=== PATIENT | male | born 1995 | race Caucasian/White ===

== ENCOUNTER 2017-02-21 17:08 | Emergency (ER) | payer SELFPAY ==
[2017-02-21 17:30] VITALS: BP 136/84
--- NOTE | 2017-02-21 18:16 | EDM.PDOC ---
ED HPI GENERAL MEDICAL PROBLEM - General Chief Complaint: General Stated Complaint: SWOLLEN LYMPH NODE Time Seen by Provider: 02/21/17 17:43 Source of Information: Reports: Patient, Family History Limitations: Reports: No Limitations - History of Present Illness INITIAL COMMENTS - FREE TEXT/NARRATIVE: Patient presents for evaluation of sore throat cervical lymph nodes that are swollen and he noticed some yellow spots on his anterior abdominal wall. The patient feels that he is more tired than usual. He has generalized body aches. Has a cough which is nonproductive. And has some mild symptoms of fever and chills no temperature elevation documented Onset: Gradual Onset Date: 02/20/17 Duration: Day(s):, Getting Worse Location: Reports: Neck Quality: Reports: Ache Severity: Mild Improves with: Reports: None Worsens with: Reports: None Associated Symptoms: Reports: Cough, Fever/Chills Treatments LAUNDRY AID: Reports: Acetaminophen Generalized Pain Score (Numeric/FACES): 1 - Related Data Allergies Allergy/AdvReac Type Severity Reaction Status Date / Time No Known Allergies Allergy Verified 02/21/17 17:57 Home Meds: Home Meds NK [No Known Home Meds] 10/09/15 [History] Past Medical History - Past Health History Medical/Surgical History: Denies Medical/Surgical History Psychiatric History: Reports: Anxiety - Past Surgical History Male Surgical History: Reports: Other (See Below) Social & Family History - Family History Family Medical History: Unobtainable - Tobacco Use Smoking Status *Q: Never Smoker Second Hand Smoke Exposure: No - Alcohol Use Days Per Week of Alcohol Use: 4 Number of Drinks Per Day: 6 Total Drinks Per Week: 24 - Recreational Drug Use Recreational Drug Use: Yes Recreational Drug Type: Reports: Marijuana/Hashish Recreational Drug Use Frequency: Daily ED ROS GENERAL - Review of Systems Review Of Systems: See Below Constitutional: Reports: Fever, Chills, Malaise, Fatigue HEENT: Reports: Throat Pain, Throat Swelling Respiratory: Reports: Cough Cardiovascular: Reports: No Symptoms Endocrine: Reports: Fatigue GI/Abdominal: Reports: No Symptoms : Reports: No Symptoms Musculoskeletal: Reports: No Symptoms Skin: Reports: No Symptoms Neurological: Reports: No Symptoms Psychiatric: Reports: No Symptoms ED EXAM, GENERAL - Physical Exam Exam: See Below Exam Limited By: No Limitations General Appearance: Alert, WD/WN, Mild Distress Eye Exam: Bilateral Eye: Normal Inspection Ears: Normal External Exam, Hearing Grossly Normal Nose: Normal Inspection Throat/Mouth: No Airway Compromise, Inflammation Head: Atraumatic, Normocephalic Respiratory/Chest: No Respiratory Distress Cardiovascular: Normal Peripheral Pulses GI/Abdominal: Normal Bowel Sounds Back Exam: Normal Inspection Extremities: Normal Inspection Neurological: Alert, Oriented Psychiatric: Normal Affect, Normal Mood Skin Exam: Warm, Dry, Intact, Other (2 anterior wall small areas of yellow discoloration which appears to be resolving ecchymosis) Course - Vital Signs Last Recorded V/S: Last Vital Signs Temp 99.0 F 02/21/17 17:56 Pulse 86 02/21/17 17:56 Resp 16 02/21/17 17:56 BP 136/84 02/21/17 17:56 Pulse Ox 97 02/21/17 17:56 Departure - Departure Time of Disposition: 18:15 Disposition: Home, Self-Care 01 Condition: Good Clinical Impression: Pharyngitis Qualifiers: Pharyngitis/tonsillitis etiology: unspecified etiology Qualified Code(s): J02.9 - Acute pharyngitis, unspecified - Discharge Information Referrals: Rafiq Yee Sr, MD [Primary Care Provider] - Forms: ED Department Discharge Additional Instructions: Patient does have a red pharynx with cervical lymphadenopathy. There is no exudates present on the residual tonsillar tissue. The patient be treated with amoxicillin 500 mg 3 times a day for 10 days. Patient needs to be reevaluated if any complications are encountered or the failure to respond to treatment plan. - Problem List & Annotations (1) Pharyngitis SNOMED Code(s): 775924015 Code(s): J02.9 - ACUTE PHARYNGITIS, UNSPECIFIED Status: Acute Priority: Medium Current Visit: Yes Qualifiers: Pharyngitis/tonsillitis etiology: unspecified etiology Qualified Code(s): J02.9 - Acute pharyngitis, unspecified - Problem List Review Problem List Initiated/Reviewed/Updated: Yes
== END 2017-02-21 18:25 | disposition home or self-care (01) ==
LOC: JP.ED 17:08
DX: J02.9 Acute pharyngitis, unspecified (principal)
CPT/HCPCS: 99283

== ENCOUNTER 2018-05-04 16:52 | Emergency (ER) | payer SELFPAY ==
--- NOTE | 2018-05-04 18:19 | EDM.PDOCBH ---
ED HPI GENERAL MEDICAL PROBLEM - General Chief Complaint: Behavioral/Psych Stated Complaint: MED [facility] Time Seen by Provider: 05/04/18 18:07 Source of Information: Reports: Patient, RN Notes Reviewed History Limitations: Reports: No Limitations - History of Present Illness INITIAL COMMENTS - FREE TEXT/NARRATIVE: 22-year-old gentleman brought in by law enforcement for psychiatric evaluation. Story is that he had posted a video on [employer] showing him ingesting multiple tablets law enforcement was called for social intervention evaluation brought to the emergency department for psychiatric evaluation. He denies any suicidal ideation at this time states he has been taking ibuprofen and Tylenol for dental pain he believes he ingested 9 200 mg naproxen tablets in combination with antibiotics but he does not know the type of antibiotics that he just. At this time he denies any pain no complaints whatsoever. Time of ingestion was approximately 2 hours prior - Related Data Allergies Allergy/AdvReac Type Severity Reaction Status Date / Time No Known Allergies Allergy Verified 02/21/17 17:57 Home Meds: Home Meds NK [No Known Home Meds] 10/09/15 [History] Past Medical History Psychiatric History: Reports: Anxiety - Past Surgical History Male Surgical History: Reports: Other (See Below) Social & Family History - Family History Family Medical History: Unobtainable - Tobacco Use Smoking Status *Q: Never Smoker - Caffeine Use Caffeine Use: Reports: Energy Drinks - Recreational Drug Use Recreational Drug Use: Yes Drug Use in Last 12 Months: Yes Recreational Drug Type: Reports: Marijuana/Hashish Recreational Drug Use Frequency: Daily ED ROS GENERAL - Review of Systems Review Of Systems: See Below Constitutional: Reports: No Symptoms HEENT: Reports: Dental Pain Respiratory: Reports: No Symptoms Cardiovascular: Reports: No Symptoms GI/Abdominal: Reports: No Symptoms : Reports: No Symptoms Musculoskeletal: Reports: No Symptoms Skin: Reports: No Symptoms ED EXAM, BEHAVIORAL HEALTH - Physical Exam Exam: See Below Text/Narrative:: General: Male, not in any distress, alert and oriented x3 HEENT: head is atraumatic normocephalic, eyes pupils equal round reactive to light, sclera clear no conjunctivitis appreciated. Ears tympanic membranes clear and callaway landmarks and light reflex are present bilaterally canals are clear. Nose no septal deviation, nares are clear, no blood present. Mouth mucosa is moist and pink no erythema or exudate noted in soft palate, tongue is midline uvula is midline, dentition is poor. Neck: Supple no thyromegaly no tracheal deviation. Nodes: Cervical nodes subclavicular nodes nontender no palpable lymphadenopathy noted. Lungs: clear to auscultation bilaterally with symmetrical respirations, no adventitious noise appreciated. CV: Tachycardic rate and rhythm S1 and S2 appreciated no murmurs rubs or gallops noted. Abdomen: Soft, nontender, no palpable masses or organomegaly appreciated, no distention no guarding bowel sounds are present, . Neuro: Cranial nerves II through XII grossly intact Skin: Warm and dry, intact Extremities: No lower extremity edema appreciated, pedal pulse is +2. Orientated to person place and time, appropriately dressed, well groomed, memory to recent and remote events intact, good attention and concentration, speech is of adequate rate tone and volume, poor fund of knowledge, language is appropriate, Mood and affect are euthymic, no pressured thoughts, denies suicidal ideation, denies homicidal ideation, no hallucinations visual or auditory, poor judgment, poor insight COURSE, BEHAVIORAL HEALTH COMP - Course Vital Signs: Last Vital Signs Temp 97.2 F 05/04/18 20:31 Pulse 63 05/04/18 20:31 Resp 16 05/04/18 20:31 BP 118/60 05/04/18 20:31 Pulse Ox 99 05/04/18 20:31 Orders, Labs, Meds: Active Orders 24 hr Category Date Time Status EKG Documentation Completion [RC] ASDIRECTED Care 05/04/18 18:15 Active Suicide Precautions [OM.PC] Routine Oth 05/05/18 00:22 Ordered EKG 12 Lead [EK] Urgent Ther 05/04/18 18:13 Ordered Laboratory Tests 05/04/18 05/04/18 05/04/18 Range/Units 18:13 18:13 18:13 WBC 10.8 (4.5-11.0) K/uL RBC 4.37 (4.30-5.90) M/uL Hgb 13.9 (12.0-15.0) g/dL Hct 38.2 L (40.0-54.0) % MCV 87 (80-98) fL MCH 32 H (27-31) pg MCHC 36 (32-36) % Plt Count 258 (150-400) K/uL Neut % (Auto) 83 H (36-66) % Lymph % (Auto) 8 L (24-44) % [place] % (Auto) 9 H (2-6) % Eos % (Auto) 1 L (2-4) % Baso % (Auto) 0 (0-1) % Sodium (140-148) mmol/L Potassium (3.6-5.2) mmol/L Chloride (100-108) mmol/L Carbon Dioxide (21-32) mmol/L Anion Gap (5.0-14.0) mmol/L BUN (7-18) mg/dL Creatinine (0.8-1.3) mg/dL Est Cr Clr Drug Dosing mL/min Estimated GFR (MDRD) (>60) Glucose (74-106) mg/dL Calcium (8.5-10.1) mg/dL Total Bilirubin (0.2-1.0) mg/dL AST (15-37) U/L ALT (12-78) U/L Alkaline Phosphatase (46-116) U/L Total Protein (6.4-8.2) g/dL Albumin (3.4-5.0) g/dL Globulin (2.3-3.5) g/dL Albumin/Globulin Ratio (1.2-2.2) Urine Color Yellow Urine Appearance Clear Urine pH 8.0 (4.5-8.0) Ur Specific [place] 1.010 (1.008-1.030) Urine Protein Negative (NEGATIVE) mg/dL Urine Glucose (UA) Normal (NEGATIVE) mg/dL Urine Ketones Negative (NEGATIVE) mg/dL Urine Occult Blood Negative (NEGATIVE) Urine Nitrite Negative (NEGAITVE) Urine Bilirubin Negative (NEGATIVE) Urine Urobilinogen Normal (NORMAL) mg/dL Ur Leukocyte Esterase Negative (NEGATIVE) Urine RBC Not seen (0-5) Urine WBC Not seen (0-5) Ur Epithelial Cells Not seen Amorphous Sediment Not seen Urine Bacteria Rare Urine Mucus Not seen Salicylates (2.0-20.0) mg/dL Urine Opiates Screen Negative (NEGATIVE) Ur Oxycodone Screen Presumptive positive H (NEGATIVE) Urine Methadone Screen Negative (NEGATIVE) Ur Propoxyphene Screen Negative (NEGATIVE) Acetaminophen (10.0-30.0) ug/mL Ur Barbiturates Screen Negative (NEGATIVE) Ur Tricyclics Screen Negative (NEGATIVE) Ur Phencyclidine Scrn Negative (NEGATIVE) Ur Amphetamine Screen Presumptive positive H (NEGATIVE) U Methamphetamines Scrn Negative (NEGATIVE) Urine MDMA Screen Negative (NEGATIVE) U Benzodiazepines Scrn Negative (NEGATIVE) U Cocaine Metab Screen Negative (NEGATIVE) U Marijuana (THC) Screen Presumptive positive H (NEGATIVE) Ethyl Alcohol mg/dL 05/04/18 05/04/18 05/04/18 Range/Units 18:13 18:13 18:13 WBC (4.5-11.0) K/uL RBC (4.30-5.90) M/uL Hgb (12.0-15.0) g/dL Hct (40.0-54.0) % MCV (80-98) fL MCH (27-31) pg MCHC (32-36) % Plt Count (150-400) K/uL Neut % (Auto) (36-66) % Lymph % (Auto) (24-44) % [place] % (Auto) (2-6) % Eos % (Auto) (2-4) % Baso % (Auto) (0-1) % Sodium 140 (140-148) mmol/L Potassium 4.0 (3.6-5.2) mmol/L Chloride 102 (100-108) mmol/L Carbon Dioxide 29 (21-32) mmol/L Anion Gap 9.4 (5.0-14.0) mmol/L BUN 12 (7-18) mg/dL Creatinine 1.0 (0.8-1.3) mg/dL Est Cr Clr Drug Dosing 112.04 mL/min Estimated GFR (MDRD) > 60 (>60) Glucose 102 (74-106) mg/dL Calcium 8.7 (8.5-10.1) mg/dL Total Bilirubin 0.7 D (0.2-1.0) mg/dL AST 22 (15-37) U/L ALT 29 (12-78) U/L Alkaline Phosphatase 74 (46-116) U/L Total Protein 7.6 (6.4-8.2) g/dL Albumin 4.2 (3.4-5.0) g/dL Globulin 3.4 (2.3-3.5) g/dL Albumin/Globulin Ratio 1.2 (1.2-2.2) Urine Color Urine Appearance Urine pH (4.5-8.0) Ur Specific [place] (1.008-1.030) Urine Protein (NEGATIVE) mg/dL Urine Glucose (UA) (NEGATIVE) mg/dL Urine Ketones (NEGATIVE) mg/dL Urine Occult Blood (NEGATIVE) Urine Nitrite (NEGAITVE) Urine Bilirubin (NEGATIVE) Urine Urobilinogen (NORMAL) mg/dL Ur Leukocyte Esterase (NEGATIVE) Urine RBC (0-5) Urine WBC (0-5) Ur Epithelial Cells Amorphous Sediment Urine Bacteria Urine Mucus Salicylates 1.7 L (2.0-20.0) mg/dL Urine Opiates Screen (NEGATIVE) Ur Oxycodone Screen (NEGATIVE) Urine Methadone Screen (NEGATIVE) Ur Propoxyphene Screen (NEGATIVE) Acetaminophen < 2.0 L (10.0-30.0) ug/mL Ur Barbiturates Screen (NEGATIVE) Ur Tricyclics Screen (NEGATIVE) Ur Phencyclidine Scrn (NEGATIVE) Ur Amphetamine Screen (NEGATIVE) U Methamphetamines Scrn (NEGATIVE) Urine MDMA Screen (NEGATIVE) U Benzodiazepines Scrn (NEGATIVE) U Cocaine Metab Screen (NEGATIVE) U Marijuana (THC) Screen (NEGATIVE) Ethyl Alcohol < 3 mg/dL Re-Assessment/Re-Exam: After discussion with mental health crisis team they're recommending placement for suicidal ideation and attempt, feel he is very impulsive and is likely to harm himself, thus far has been cooperative but may need to be placed on a hold as he has the potential to a elope Departure - Departure Time of Disposition: 00:38 Disposition: DC/Tfer to Psych Hosp/Unit 65 Condition: Fair Clinical Impression: Suicidal ideation - Discharge Information Referrals: PCP,None [Primary Care Provider] - Forms: ED Department Discharge - My Orders Last 24 Hours: My Active Orders 05/04/18 18:13 EKG 12 Lead [EK] Urgent 05/04/18 18:15 EKG Documentation Completion [RC] ASDIRECTED 05/05/18 00:22 Suicide Precautions [OM.PC] Routine - Assessment/Plan Last 24 Hours: My Active Orders 05/04/18 18:13 EKG 12 Lead [EK] Urgent 05/04/18 18:15 EKG Documentation Completion [RC] ASDIRECTED 05/05/18 00:22 Suicide Precautions [OM.PC] Routine Plan: Assessment Acuity = acute Site and laterality = suicidal ideation Etiology = unknown etiology Manifestations = none Location of injury = Home Lab values = CBC, CMP, urinalysis unremarkable urine drug screen positive for opiates, amphetamine, cannabis EKG demonstrates normal sinus rhythm Plan acceptance was granted by [facility] , he was placed on 72 hour hold after evaluation by crisis team felt he was impulsive and danger to himself he has been reluctant to go to psychiatric care This note was dictated using [employer] voice recognition software please call with any questions on syntax or grammar.
[2018-05-04 18:56] LABS: ACETAMINOPHEN < 2.0 ug/mL (10.0-30.0)
[2018-05-05 01:08] VITALS: BP 146/68
== END 2018-05-05 01:18 ==
LOC: JP.ED 16:52
DX: R45.851 Suicidal ideations (principal); F41.9 Anxiety disorder, unspecified
CPT/HCPCS: 36415; 80053; 80305; 81001; 85025; 93005; 99285; G0480

== ENCOUNTER 2018-10-30 17:55 | Emergency (ER) | payer SELFPAY ==
[2018-10-30 18:19] VITALS: BP 142/88
[2018-10-30] MEDS ORDERED: LORazepam 1 MG Tab PO ONE (18:32)
--- NOTE | 2018-10-30 18:36 | EDM.PDOC ---
ED HPI GENERAL MEDICAL PROBLEM - General Chief Complaint: ENT Problem Stated Complaint: NUMBNESS, INFECTED TEETH & BLURRY VISION Time Seen by Provider: 10/30/18 18:20 Source of Information: Reports: Patient History Limitations: Reports: No Limitations - History of Present Illness INITIAL COMMENTS - FREE TEXT/NARRATIVE: [id number] male has had intermittent pain in his teeth for the past several weeks, has chronic anxiety, and over the past 2 weeks has had several episodes of malaise with numbness in his hands and feet and face. Previously he would relax, have something to drink and eat and would go away but today it seemed to be more persistent so he came in to be seen. He is afebrile, vitals are normal other than mild tachycardia. Denies any nausea or vomiting, no shortness of breath, he has a dull pressure in his right upper chest. Improves with: Reports: Rest - Related Data Allergies Allergy/AdvReac Type Severity Reaction Status Date / Time No Known Allergies Allergy Verified 10/30/18 18:23 Home Meds: Home Meds NK [No Known Home Meds] 10/09/15 [History] Past Medical History - Past Health History Medical/Surgical History: Denies Medical/Surgical History Psychiatric History: Reports: Anxiety, Depression, Suicidal Ideation - Past Surgical History Male Surgical History: Reports: Other (See Below) Other Male Surgeries/Procedures: torsion of testicle Social & Family History - Family History Family Medical History: Unobtainable - Tobacco Use Smoking Status *Q: Never Smoker - Caffeine Use Caffeine Use: Reports: Energy Drinks - Recreational Drug Use Recreational Drug Type: Reports: Marijuana/Hashish, Methamphetamine ED ROS GENERAL - Review of Systems Review Of Systems: See Below Constitutional: Reports: Malaise. Denies: Fever, Chills HEENT: Reports: Dental Pain Respiratory: Denies: Shortness of Breath Cardiovascular: Reports: Chest Pain GI/Abdominal: Reports: No Symptoms : Reports: No Symptoms Skin: Reports: No Symptoms Neurological: Reports: Paresthesia (Face, hands and feet) Psychiatric: Reports: Anxiety ED EXAM, GENERAL - Physical Exam Exam: See Below Exam Limited By: No Limitations General Appearance: Alert, No Apparent Distress Eye Exam: Bilateral Eye: Normal Inspection Throat/Mouth: Other (Patient has fairly extensive dental decay upper and lower teeth) Head: Atraumatic Neck: No: Lymphadenopathy (R), Lymphadenopathy (L) Respiratory/Chest: No Respiratory Distress, Lungs Clear Cardiovascular: Regular Rate, Rhythm, Tachycardia Extremities: Normal Inspection. No: Pedal Edema Neurological: Alert, Oriented, No Motor/Sensory Deficits Psychiatric: Anxious Skin Exam: Warm, Dry Course - Vital Signs Last Recorded V/S: Last Vital Signs Temp 97.1 F 10/30/18 18:18 Pulse 119 H 10/30/18 18:18 Resp 16 10/30/18 18:18 BP 142/88 H 10/30/18 18:18 Pulse Ox 99 10/30/18 18:18 - Orders/Labs/Meds Meds: Medications Discontinued Medications Generic Name Dose Route Start Last Admin Trade Name Freq PRN Reason Stop Dose Admin Lorazepam 1 mg 10/30/18 18:32 10/30/18 18:41 Ativan PO 10/30/18 18:33 1 mg ONETIME ONE Administration - Re-Assessments/Exams Free Text/Narrative Re-Assessment/Exam: 10/30/18 18:34 Explained to the patient that his symptoms are anxiety related secondary to not feeling well. He was given 1 mg of oral Ativan, and was started on penicillin 500 mg 4 times a day for the dental pain and inflammation. He needs to see a dentist. Departure - Departure Time of Disposition: 18:42 Disposition: Home, Self-Care 01 Condition: Good Clinical Impression: Pain due to dental caries, Hyperventilation - Discharge Information Instructions: Hyperventilation Referrals: PCP,None [Primary Care Provider] - Forms: ED Department Discharge Care Plan Goals: Rest tonight, take penicillin 4 times a day until gone and recheck with a dentist as soon as possible. Return anytime if worsening such as increased facial swelling or fever.
== END 2018-10-30 18:42 | disposition home or self-care (01) ==
LOC: JP.ED 17:55
DX: K02.9 Dental caries, unspecified (principal); R06.4 Hyperventilation
CPT/HCPCS: 99283; A9270

== ENCOUNTER 2018-11-04 16:02 | Emergency (ER) | payer SELFPAY ==
[2018-11-04 16:54] VITALS: BP 131/74
--- NOTE | 2018-11-04 17:21 | EDM.PDOC ---
ED HPI GENERAL MEDICAL PROBLEM - General Chief Complaint: ENT Problem Stated Complaint: HERE MON, INFECTION GETTING WORSE Time Seen by Provider: 11/04/18 17:05 Source of Information: Reports: Patient, Old Records, RN History Limitations: Reports: No Limitations - History of Present Illness INITIAL COMMENTS - FREE TEXT/NARRATIVE: 22 yo male here reporting that is dental infection is getting worse. Was seen here about 4 d ago and placed on PCN and was asked to see a dentist BOB. He has not made any attempt so far to follow up with dentist or family doctor. His L lower jaw has some local swelling now. No fever. Doesn't feel well. Onset: Gradual Onset Date: 11/03/18 Duration: Hour(s):, Getting Worse Location: Reports: Face (left) Quality: Reports: Ache Severity: Mild Improves with: Reports: None Worsens with: Reports: Other (time) Context: Reports: Other (see HPI) Associated Symptoms: Reports: Other (generally not feeling well.) Treatments DRILL [employer]ESS TENDER: Reports: Other (see below) (PCN) - Related Data Allergies Allergy/AdvReac Type Severity Reaction Status Date / Time No Known Allergies Allergy Verified 11/04/18 17:02 Home Meds: Home Meds Clindamycin HCl 300 mg PO TID #30 capsule 11/04/18 [Rx] Penicillin V Potassium 1 tab PO QID 11/04/18 [History] Past Medical History - Past Health History Medical/Surgical History: Denies Medical/Surgical History Psychiatric History: Reports: Anxiety, Suicidal Ideation - Past Surgical History Male Surgical History: Reports: Other (See Below) Other Male Surgeries/Procedures: torsion of testicle Social & Family History - Family History Family Medical History: Unobtainable - Tobacco Use Smoking Status *Q: Never Smoker - Caffeine Use Caffeine Use: Reports: Energy Drinks ED ROS ENT - Review of Systems Review Of Systems: See Below Constitutional: Reports: Other (doesn't feel well.) HEENT: Reports: Dental Pain, Other (L mandible swelling adjacent to his bad tooth. ) Respiratory: Reports: No Symptoms Cardiovascular: Reports: No Symptoms GI/Abdominal: Reports: No Symptoms : Reports: No Symptoms Skin: Reports: No Symptoms ED EXAM, ENT - Physical Exam Exam: See Below Exam Limited By: No Limitations General Appearance: Alert, WD/WN, No Apparent Distress Eye Exam: Bilateral Eye: Normal Inspection Ears: Normal External Exam, Normal Canal, Hearing Grossly Normal, Normal TMs Nose: Normal Inspection, No Blood Mouth/Throat: Normal Inspection, Normal Lips, Normal Oropharynx, Other (poor dentitian, L lateral mandible has some local swelling/tenderness.). No: Normal Teeth Head: Atraumatic, Normocephalic Neck: Normal Inspection Respiratory/Chest: No Respiratory Distress, Lungs Clear, Normal Breath Sounds, No Accessory Muscle Use Cardiovascular: Regular Rate, Rhythm Course - Vital Signs Last Recorded V/S: Last Vital Signs Temp 35.7 C 11/04/18 17:06 Pulse 72 11/04/18 17:06 Resp 16 11/04/18 17:06 BP 131/74 11/04/18 17:06 Pulse Ox 100 11/04/18 17:06 Departure - Departure Time of Disposition: 17:23 Disposition: Home, Self-Care 01 Condition: Good Clinical Impression: Dental infection - Discharge Information *PRESCRIPTION DRUG MONITORING PROGRAM REVIEWED*: No *COPY OF PRESCRIPTION DRUG MONITORING REPORT IN PATIENT SAMANTA: No Prescriptions: Clindamycin HCl 300 mg PO TID #30 capsule Instructions: Dental Abscess, [id number] Referrals: PCP,None [Primary Care Provider] - Additional Instructions: Stop penicillin and substitute clindamycin. Take acetaminophen and/or ibuprofen as needed for pain relief. Drink ample fluids. F/U with your dentist bob, and see your family doctor if not able to get an appt with the dentist within one week of today.
== END 2018-11-04 17:37 | disposition home or self-care (01) ==
LOC: JP.ED 16:02
DX: K04.7 Periapical abscess without sinus (principal)
CPT/HCPCS: 99282

== ENCOUNTER 2018-12-03 10:42 | Emergency (ER) | payer SELFPAY ==
[2018-12-03 11:08] VITALS: BP 149/77
--- NOTE | 2018-12-03 11:29 | EDM.PDOC ---
ED HPI GENERAL MEDICAL PROBLEM - General Chief Complaint: Headache Stated Complaint: HEADACHE Time Seen by Provider: 12/03/18 11:15 Source of Information: Reports: Patient, Old Records, RN History Limitations: Reports: No Limitations - History of Present Illness INITIAL COMMENTS - FREE TEXT/NARRATIVE: 23 yo male here with dental pain to the L upper/posterior mouth. Has a dentist, but no family doctor. No fever. Sx's getting worse over the past 5 d. Onset: Gradual Onset Date: 11/28/18 Duration: Day(s): (5), Getting Worse Location: Reports: Face (left) Quality: Reports: Ache Severity: Moderate Improves with: Reports: Medication Worsens with: Reports: Other (time) Context: Reports: Other (See HPI) Associated Symptoms: Reports: No Other Symptoms. Denies: Fever/Chills, Rash Treatments SERVICE DESK MANAGER: Reports: Other (see below) (none) headache Pain Score (Numeric/FACES): 5 - Related Data Allergies Allergy/AdvReac Type Severity Reaction Status Date / Time No Known Allergies Allergy Verified 12/03/18 11:15 Home Meds: Home Meds Hydrocodone/Acetaminophen [[place] 5-325 Tablet] 1 - 2 each PO Q6H PRN #14 tablet 12/03/18 [Rx] Penicillin V Potassium 500 mg PO Q6HR #40 tab 12/03/18 [Rx] Past Medical History - Past Health History Medical/Surgical History: Denies Medical/Surgical History Psychiatric History: Reports: Anxiety, Suicidal Ideation - Past Surgical History Male Surgical History: Reports: Other (See Below) Other Male Surgeries/Procedures: torsion of testicle Social & Family History - Family History Family Medical History: Unobtainable - Tobacco Use Smoking Status *Q: Never Smoker - Caffeine Use Caffeine Use: Reports: Soda - Recreational Drug Use Recreational Drug Use: No ED ROS ENT - Review of Systems Review Of Systems: See Below Constitutional: Reports: No Symptoms HEENT: Reports: Dental Pain Respiratory: Reports: No Symptoms Cardiovascular: Reports: No Symptoms GI/Abdominal: Reports: No Symptoms : Reports: No Symptoms Musculoskeletal: Reports: No Symptoms Skin: Reports: No Symptoms Neurological: Reports: No Symptoms ED EXAM, ENT - Physical Exam Exam: See Below Exam Limited By: No Limitations General Appearance: Alert, WD/WN, No Apparent Distress Eye Exam: Bilateral Eye: Normal Inspection Ears: Normal External Exam, Normal Canal, Hearing Grossly Normal, Normal TMs Nose: Normal Inspection, No Blood Mouth/Throat: Normal Inspection, Normal Lips, Normal Oropharynx, Dental Pain (L posterior most upper molar is decayed and tender). No: Normal Teeth Head: Atraumatic, Normocephalic Neck: Normal Inspection, Supple, Non-Tender, Full Range of Motion. No: Lymphadenopathy (R), Lymphadenopathy (L) Cardiovascular: Regular Rate, Rhythm Neurological: Alert, Oriented, CN II-XII Intact, Normal Cognition, No Motor/ Sensory Deficits Psychiatric: Normal Affect, Normal Mood Skin: Warm, Dry, Intact, Normal Color, No Rash Lymphatic: No Adenopathy Course - Vital Signs Last Recorded V/S: Last Vital Signs Temp 35.4 C 12/03/18 11:15 Pulse 57 L 12/03/18 11:15 Resp 12 12/03/18 11:15 BP 149/77 H 12/03/18 11:15 Pulse Ox 100 12/03/18 11:15 Departure - Departure Time of Disposition: 11:27 Disposition: Home, Self-Care 01 Condition: Good Clinical Impression: Pain, dental - Discharge Information *PRESCRIPTION DRUG MONITORING PROGRAM REVIEWED*: No *COPY OF PRESCRIPTION DRUG MONITORING REPORT IN PATIENT SAMANTA: No Referrals: PCP,None [Primary Care Provider] - Additional Instructions: Use Penicillin as directed. Take ibuprofen 600 mg every 6 hrs for pain relief. Add acetaminophen or [place] for added pain relief. See your dentist maggi.
== END 2018-12-03 11:37 | disposition home or self-care (01) ==
LOC: JP.ED 10:42
DX: K08.89 Other specified disorders of teeth and supporting structures (principal)
CPT/HCPCS: 99282; 99283

== ENCOUNTER 2020-01-22 08:18 | Emergency (ER) | payer SELFPAY ==
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
[2020-01-22 08:32] VITALS: BP 135/86; PULSE 73
--- NOTE | 2020-01-22 09:37 | CR ---
Shoulder Comp Rt, Elbow 2V Rt CLINICAL HISTORY: Trauma FINDINGS: There is no acute fracture or dislocation in the right shoulder. Particular surfaces are smooth. Impression: Negative Rt, Elbow 2V Rt FINDINGS: No fracture line or dislocation is noted. There is some minimal irregularity on the lateral aspect of the radial head. There is mild cortical irregularity along the lateral epicondyle. The fat pads are displaced . Impression: Fat-pad displacement suggests hemarthrosis. Minimal deformity of the radial head is suspicious for fracture. Repeat 4 view study is recommended
--- NOTE | 2020-01-22 09:38 | CR ---
Wrist 2V Rt CLINICAL HISTORY: Fall FINDINGS: There is no acute fracture or dislocation within the right wrist. Impression: Negative
== END 2020-01-22 09:57 | disposition home or self-care (01) ==
LOC: JP.ED 08:18
DX: S52.91XA Unspecified fracture of right forearm, initial encounter for closed fracture (principal); V19.9XXA Pedal cyclist (driver) (passenger) injured in unspecified traffic accident, initial encounter
CPT/HCPCS: 29105; 73030-26-RT; 73030-RT; 73070-26-RT; 73070-RT; 73100-26-RT; 73100-RT; 99283

== ENCOUNTER 2024-05-19 11:18 | Emergency (ER) | payer OTHER ==
[2024-05-19 12:29] VITALS: BP 147/92; PULSE 80
== END 2024-05-19 13:51 | disposition home or self-care (01) ==
LOC: JP.ED 11:18
DX: K04.7 Periapical abscess without sinus (principal)
CPT/HCPCS: 99283